=== PATIENT | female | born 1990 | race Caucasian/White ===

== ENCOUNTER 2017-06-30 14:25 | Inpatient (IN) | payer OTHER ==
[~2017-06-30] VITALS: Ht 162.6 cm; Wt 84.4 kg
[2017-06-30] MEDS ORDERED: OXYTOCIN 20 UNITS in LACTATED RINGERS 1,000 ML IV SCH (15:59)
[2017-06-30] MEDS ORDERED: MEASLES, MUMPS, AND RUBELLA 1 VIAL SQVAC PRN (16:00)
[2017-06-30] MEDS ORDERED: TEMAZEPAM 15 MG CAP PO PRN (16:00)
[2017-06-30] MEDS ORDERED: IBUPROFEN 800 MG TAB PO PRN (16:00)
[2017-06-30] MEDS ORDERED: HYDROcodone/APAP 5/325 MG 1 TAB TAB PO PRN (16:00)
[2017-06-30] MEDS ORDERED: METHYLERGONOVINE 0.2 MG/ML AMP IM PRN (16:00)
[2017-06-30] MEDS ORDERED: TRIMETHOBENZAMIDE 200 MG/2 ML SYR IM PRN (16:00)
[2017-06-30] MEDS ORDERED: LACTATED RINGERS 1,000 ML IV SCH (16:20)
[2017-06-30 17:00] VITALS: BP 133/73
[2017-06-30 17:03] LABS: EOSINOPHILS # (AUTO) 0.1 K/uL (0-0.4)
[2017-06-30] MEDS ORDERED: PREN-380 PO (17:03)
[2017-06-30] MEDS ORDERED: TERBUTALINE 1 MG/ML VIAL SUBQ ONE (17:04)
[2017-06-30 17:09] LABS: BASOPHILS # (AUTO) 0.2 K/uL (0.00-0.22); BASOPHILS % (AUTO) 1.5 % (0.0-2.0); EOSINOPHILS % (AUTO) 1.2 % (0.0-4.0); HEMATOCRIT 39.9 % (36-48); HEMOGLOBIN 13.5 g/dL (12.0-16.0); LYMPHOCYTES # (AUTO) 1.8 K/uL (2.5-16.5); LYMPHOCYTES % (AUTO) 14.8 % (20.5-51.1); MEAN CORPUSCULAR HEMOGLOBIN 31 pg (27-31); MEAN CORPUSCULAR HGB CONC 34 g/dL (33-37); MEAN CORPUSCULAR VOLUME 91 fL (80-94); MONOCYTES # (AUTO) 0.7 K/uL (0.8-1.0); MONOCYTES % (AUTO) 5.9 % (1.7-9.3); NEUTROPHILS # (AUTO) 9.5 K/uL (1.8-7.7); NEUTROPHILS % (AUTO) 76.6 % (42.2-75.2); PLATELET COUNT (AUTO) 213 K/uL (140-450); RED CELL DISTRIBUTION WIDTH 13.1 % (11.6-13.7); WHITE BLOOD COUNT (AUTO) 12.3 K/uL (4.8-10.8)
[2017-06-30 17:13] LABS: APPEARANCE,URINE CLEAR (CLEAR); BILIRUBIN,URINE NEGATIVE (NEGATIVE); BLOOD, URINE 2+ (NEGATIVE); COLOR,URINE YELLOW (YELLOW); LEUKOCYTE ESTERASE ,URINE NEGATIVE (NEGATIVE); NITRITE, URINE NEGATIVE (NEGATIVE); UGLUCOSE NEGATIVE (NEGATIVE)
[2017-06-30] MEDS ORDERED: CITRIC ACID/SODIUM CITRATE 30 ML UDC PO SCH (17:15)
[2017-06-30 17:24] LABS: ALBUMIN 2.9 g/dL (3.4-5.0); ANION GAP 10.9 (8-16); CARBON DIOXIDE 23.8 mmol/L (21-32); CREATININE 0.6 mg/dL (0.6-1.3); POTASSIUM 3.7 mmol/L (3.5-5.1); TOTAL BILIRUBIN 0.3 mg/dL (0.0-1.0)
[2017-06-30 17:27] LABS: RBC,URINE 0-5 (RARE) /HPF (0-5)
[2017-06-30 17:28] LABS: WBC,URINE 0-5 (RARE) /HPF (0-5)
[2017-06-30 18:02] LABS: BARBITURATE, URINE NEG. ng/ml (NEG <=200); BENZODIAZEPINE, URINE NEG. ng/mL (NEG <=200); CANNABINOID, URINE NEG. ng/mL (NEG <=50); COCAINE, URINE NEG. ng/mL (NEG <=300); OPIATE, URINE NEG. ng/mL (NEG <=2000); PHENCYCLIDINE SCREEN,URINE NEG. ng/mL (NEG <=25)
[2017-06-30] MEDS ORDERED: ceFAZolin 1,000 MG VIAL ONE ×2 (19:47→20:00)
[2017-06-30] MEDS ORDERED: OXYTOCIN 10 UNITS/ML VIAL ONE ×2 (19:59→20:00)
[2017-06-30] MEDS ORDERED: ePHEDrine 50 MG/ML VIAL ONE (20:00)
[2017-06-30] MEDS ORDERED: METHYLERGONOVINE 0.2 MG/ML AMP ONE ×2 (20:03→20:15)
[2017-06-30] MEDS ORDERED: fentaNYL 0.05 MG/ML VIAL ONE (20:15)
[2017-06-30] MEDS ORDERED: MIDAZOLAM 2 MG/2 ML VIAL ONE (20:16)
[2017-06-30] MEDS ORDERED: KETAMINE 500 MG/5 ML VIAL ONE (20:16)
[2017-06-30] MEDS ORDERED: MORPHINE PRES FREE 10 MG/10 ML AMP IV ONE (20:16)
[2017-06-30] MEDS ORDERED: ceFAZolin 1,000 MG VIAL IVP ONE (20:49)
[2017-06-30] MEDS ORDERED: DOCUSATE SOD/SENNA 50/8.6 MG 1 TAB PO SCH (21:00)
[2017-06-30] MEDS ORDERED: KETOROLAC 30 MG/ML VIAL IVP PRN (21:05)
[2017-06-30] MEDS ORDERED: ONDANSETRON 4 MG/2 ML VIAL IVP PRN (21:05)
[2017-06-30] MEDS: diphenhydrAMINE 50 MG/ML VIAL IVP PRN (21:27)
[2017-06-30] MEDS ORDERED: diphenhydrAMINE 50 MG/ML VIAL ONE (21:33)
[2017-06-30] MEDS: OXYTOCIN 20 UNITS/LR PREMIX 1,000 ML IV ONE ×2 (21:43→22:13)
[2017-07-01] MEDS: diphenhydrAMINE 50 MG/ML VIAL IVP PRN (02:59)
[2017-07-01 06:41] LABS: BASOPHILS # (AUTO) 0.1 K/uL (0.00-0.22); BASOPHILS % (AUTO) 0.7 % (0.0-2.0); EOSINOPHILS # (AUTO) 0.1 K/uL (0-0.4); EOSINOPHILS % (AUTO) 0.5 % (0.0-4.0); HEMATOCRIT 31.3 % (36-48); HEMOGLOBIN 10.6 g/dL (12.0-16.0); LYMPHOCYTES # (AUTO) 1.8 K/uL (2.5-16.5); LYMPHOCYTES % (AUTO) 12.1 % (20.5-51.1); MEAN CORPUSCULAR HEMOGLOBIN 31 pg (27-31); MEAN CORPUSCULAR HGB CONC 34 g/dL (33-37); MEAN CORPUSCULAR VOLUME 91 fL (80-94); MONOCYTES # (AUTO) 0.9 K/uL (0.8-1.0); MONOCYTES % (AUTO) 6.2 % (1.7-9.3); NEUTROPHILS # (AUTO) 11.9 K/uL (1.8-7.7); NEUTROPHILS % (AUTO) 80.5 % (42.2-75.2); PLATELET COUNT (AUTO) 178 K/uL (140-450); RED BLOOD CELL COUNT(AUTO) 3.45 MIL/uL (4.20-5.40); RED CELL DISTRIBUTION WIDTH 12.9 % (11.6-13.7); WHITE BLOOD COUNT (AUTO) 14.8 K/uL (4.8-10.8)
[2017-07-01] MEDS ORDERED: BENZOCAINE/MENTHOL 1 LOZ MM PRN (09:30)
[2017-07-01] MEDS ORDERED: OXYTOCIN 10 UNITS/ML VIAL ONE (15:06)
[2017-07-01] MEDS: oxyCODONE/APAP 5/325 MG 1 TAB TAB PO PRN (22:45)
[2017-07-01] MEDS: SIMETHICONE 80 MG TAB.CHEW PO PRN (22:46)
[2017-07-02] MEDS: oxyCODONE/APAP 5/325 MG 1 TAB TAB PO PRN ×2 (05:59→23:16)
--- NOTE | 2017-07-02 10:02 | NUR ---
PATIENT HAS BEEN SCREENED AND CATEGORIZED LOW NUTRITION RISK. PATIENT WILL BE SEEN WITHIN 7 DAYS OF ADMISSION. 07/07/[address]
[2017-07-02] MEDS: SIMETHICONE 80 MG TAB.CHEW PO PRN (23:12)
[2017-07-03] MEDS ORDERED: INFLUENZA VIRUS VACCINE QUAD 0.5 ML SYR IMVAC SCH (05:25)
[2017-07-03] MEDS: oxyCODONE/APAP 5/325 MG 1 TAB TAB PO PRN (10:30)
[2017-07-03] MEDS: SIMETHICONE 80 MG TAB.CHEW PO PRN (10:30)
[2017-07-03] MEDS ORDERED: IBUP-2213 PO (11:00)
== END 2017-07-03 14:45 | disposition home or self-care (01) | DRG 540 ==
LOC: MLD 14:25 → OBSVTOIN 16:20 → MFCC 21:00
PROVIDERS: ADMIT Obstetrics & Gynecology; ATTEND Obstetrics & Gynecology
PROC: 10D00Z1 Extraction of Products of Conception, Low, Open Approach (ICD-10-PCS; principal; 2017-06-30 20:00)
PROC: 30233S1 Transfusion of Nonautologous Globulin into Peripheral Vein, Percutaneous Approach (ICD-10-PCS; 2017-07-01)
PROC: 3E0234Z Introduction of Serum, Toxoid and Vaccine into Muscle, Percutaneous Approach (ICD-10-PCS; 2017-07-03)
PROC: 3E0234Z Introduction of Serum, Toxoid and Vaccine into Muscle, Percutaneous Approach (ICD-10-PCS; 2017-07-03)
DX: O34.219 Maternal care for unspecified type scar from previous cesarean delivery (principal); Z23 Encounter for immunization; Z3A.38 38 weeks gestation of pregnancy; Z37.0 Single live birth; Z83.3 Family history of diabetes mellitus; Z82.49 Family history of ischemic heart disease and other diseases of the circulatory system; Z82.5 Family history of asthma and other chronic lower respiratory diseases
CPT/HCPCS: G0378 ×2; 36415; 80053; 80305; 81001; 85025; 86592; 86850; 86886; 86900; 86901; 90658; 90715; J0690; J1200; J2210; J2250; J2270; J2590; J2790; J3010; J3105; J7120